=== PATIENT | female | born 1950 | race Caucasian/White ===

== ENCOUNTER 2017-02-05 12:00 | Emergency (ER) | payer MEDICARE, OTHER ==
[~2017-02-05] VITALS: Ht 165.1 cm; Wt 68.0 kg
[2017-02-05] MEDS ORDERED: ACTIVELLA 0.5-1 EACH PO (12:17)
[2017-02-05] MEDS ORDERED: LEVOTHYROXINE25 MCG PO (12:18)
[2017-02-05] MEDS ORDERED: ZOLOFT25 MG PO (12:18)
[2017-02-05] MEDS ORDERED: CALCIUM + D3 E1 EACH PO (12:19)
--- NOTE | 2017-02-05 21:33 | EKG ---
[facility] [address] [facility] [place] [address] Signed Sinus bradycardia Nonspecific ST and T wave abnormality Abnormal ECG No previous ECGs available Confirmed by DEVONTE SAN MD ([id number] on 02/05/2017 9:33:44 PM Electronically Signed By: DEVONTE SAN MD 02/05/17 2133 PATIENT NAME: ROSAURA PRINCE Electrocardiogram DATE OF : 48 PHYSICIAN: DEVONTE SAN MD REPORT #: [id number] REPORT IS CONFIDENTIAL AND NOT TO BE RELEASED WITHOUT AUTHORIZATION
== END 2017-02-05 14:48 | disposition home or self-care (01) ==
LOC: ED 12:00
DX: J84.9 Interstitial pulmonary disease, unspecified (principal); Z79.899 Other long term (current) drug therapy; Z88.5 Allergy status to narcotic agent
CPT/HCPCS: 71020; 80053; 83735; 84484; 85025; 93005; 93010; 99284